=== PATIENT | male | born 1940 | race Caucasian/White ===

== ENCOUNTER 2016-12-05 11:00 | Outpatient (RCR) | payer MEDICARE | END 2016-12-27 | disposition home or self-care (01) | LOC: STH 11:00 | DX: I69.891 Dysphagia following other cerebrovascular disease (principal); R13.10 Dysphagia, unspecified | CPT/HCPCS: 92526; 92610; G8996; G8997 ==

== ENCOUNTER → 2016-12-05 | Outpatient (CLI) | payer MEDICARE ==
[~2016-12-05] MED LIST: ATORVASTATIN CA10 MG ORAL; LISINOPRIL5 MG ORAL
== END | disposition home or self-care (01) ==
LOC: RAD 10:47
DX: R13.10 Dysphagia, unspecified (principal); Z86.73 Personal history of transient ischemic attack (TIA), and cerebral infarction without residual deficits
CPT/HCPCS: 74230